=== PATIENT | female | born 1980 | race Caucasian/White ===

== ENCOUNTER 2018-04-14 17:40 | Emergency (ER) | payer OTHER, MEDICAID ==
[~2018-04-14] VITALS: Ht 157.5 cm; Wt 72.7 kg
[~2018-04-14 17:40] MED LIST: BUDEPRION XL300 MG PO; COMBIVENT INH14.7 GM IH; KLONOPIN 0.5MG0.5 MG PO; LEVOXYL0.05 MG PO; MELATONIN5 M1 SL; PROZAC 20MG20 MG PO; SEROQUEL50 MG PO; ZANTAC 150MG T150 MG PO; ZYRTEC 10MG10 MG PO
[2018-04-14 17:52] VITALS: BP 103/70; TEMP 98.1
[2018-04-14 18:23] LABS: BASO # 0.1 (0.0-0.2); BASO % 0.6 % (0.0-2.0); EOS # 0.8 (0.0-0.7); EOS % 10.5 % (0-4.0); GRAN # 4.9 (1.4-6.5); GRAN % 62.1 % (42.2-75.2); HEMATOCRIT 42.4 % (37.0-47.0); HEMOGLOBIN 14.3 g/dl (12.5-16.0); LYMPH # 1.6 (1.2-3.4); LYMPH % 20.8 % (20.0-51.0); MEAN CELL VOLUME 86 fl (80.0-100.0); MEAN CORPUSCULAR HEMOGLOBIN 29 pg (27.0-31.0); MEAN CORPUSCULAR HGB CONC 34 g/dl (33.0-37.0); MONO # 0.5 (0.1-0.6); MONO % 5.7 % (1.7-9.3); PLATELET COUNT 245 K/mm3 (130-400); RED BLOOD COUNT 4.93 M/mm3 (4.10-5.30); REDCELL DISTRIBUTION WIDTH-CV 12.8 % (11.5-14.5)
[2018-04-14 18:34] LABS: ACETAMINOPHEN < 10 ug/mL (10-30); ALANINE AMINOTRANSFERASE 24 U/L (9-52); ALBUMIN 4.2 gm/dL (3.5-5.0); ALCOHOL(ethanol),MEDICAL < 10 mg/dL; ALKALINE PHOSPHATASE 84 U/L (50-136); ANION GAP 11 mmol/L (7-16); AST,SGOT 22 U/L (15-37); BILIRUBIN,TOTAL 0.2 mg/dL (0.0-1.0); BLOOD UREA NITROGEN 10 mg/dL (7-17); CALCIUM 9.5 mg/dL (8.4-10.2); CARBON DIOXIDE 24 mmol/L (22-30); CHLORIDE 103 mmol/L (98-107); CREATININE, serum 0.84 mg/dL (0.52-1.25); GLUCOSE 105 mg/dL (74-106); POTASSIUM 3.9 mmol/L (3.4-5.0); SALICYLATE < 1.0 mg/dL; SODIUM 138 mmol/L (137-145); TOTAL PROTEIN 8.1 gm/dL (6.4-8.2)
[2018-04-14 19:22] LABS: COLLECTION METHOD CLEAN CATCH
[2018-04-14 19:28] LABS: MUCOUS Present /lpf; PH 5 (5-8); SQUAMOUS EPITHELIAL >50 /hpf; URINE APPEARANCE Turbid; URINE BACTERIA Rare /hpf; URINE BILIRUBIN Negative (NEGATIVE); URINE BLOOD Negative (NEGATIVE); URINE COLOR Amber; URINE GLUCOSE Negative (NEGATIVE); URINE KETONE Negative (NEGATIVE); URINE LEUKOCYTE ESTERASE Negative (NEGATIVE); URINE NITRATE Negative (NEGATIVE); URINE PROTEIN(semi-quant) 1+ (NEGATIVE)
[2018-04-14 19:37] LABS: TRICYCLIC ANTIDEPRESS URINE NEGATIVE
[2018-04-14 22:37] VITALS: PULSE 78
[2018-04-14] MEDS ORDERED: AMBIEN 10MG10 MG PO (22:40)
[2018-04-14] MEDS ORDERED: KLONOPIN WAFERS1 MG PO (22:40)
== END 2018-04-14 22:37 | disposition home or self-care (01) ==
LOC: COL.ER 17:40
PROVIDERS: Emergency Medicine
DX: F32.9 Major depressive disorder, single episode, unspecified (principal)

== ENCOUNTER 2019-09-06 19:37 | Emergency (ER) | payer BC, MEDICAID ==
[~2019-09-06] VITALS: Ht 157.5 cm; Wt 60.9 kg
[~2019-09-06 19:37] MED LIST changes: +AMBIEN 10MG10 MG PO; +KLONOPIN WAFERS1 MG PO
[2019-09-06 19:52] VITALS: TEMP 97.4
[2019-09-06 20:55] LABS: BASO % 0.5 % (0.0-2.0); EOS # 0.8 (0.0-0.7); EOS % 12.8 % (0-4.0); GRAN # 3.3 (1.4-6.5); GRAN % 50.8 % (42.2-75.2); HEMATOCRIT 38.3 % (37.0-47.0); HEMOGLOBIN 12.8 g/dl (12.5-16.0); LYMPH # 1.9 (1.2-3.4); LYMPH % 28.6 % (20.0-51.0); MEAN CELL VOLUME 93 fl (80.0-100.0); MEAN CORPUSCULAR HEMOGLOBIN 31 pg (27.0-31.0); MEAN CORPUSCULAR HGB CONC 33 g/dl (33.0-37.0); MEAN PLATELET VOLUME 10.2 fl (7.4-10.4); MONO # 0.5 (0.1-0.6); MONO % 7.1 % (1.7-9.3); PLATELET COUNT 219 K/mm3 (130-400); RED BLOOD COUNT 4.14 M/mm3 (4.10-5.30); REDCELL DISTRIBUTION WIDTH-CV 13.7 % (11.5-14.5)
[2019-09-06 21:13] LABS: ALANINE AMINOTRANSFERASE 11 U/L (9-52); ALBUMIN 4.2 gm/dL (3.5-5.0); ALKALINE PHOSPHATASE 61 U/L (50-136); ANION GAP 8 mmol/L (7-16); AST,SGOT 28 U/L (15-37); BILIRUBIN,TOTAL 0.4 mg/dL (0.0-1.0); BLOOD UREA NITROGEN 10 mg/dL (7-17); CALCIUM 9.2 mg/dL (8.4-10.2); CARBON DIOXIDE 23 mmol/L (22-30); CHLORIDE 109 mmol/L (98-107); CREATININE, serum 0.68 (0.52-1.25); GLUCOSE 92 mg/dL (74-106); POTASSIUM 3.4 mmol/L (3.4-5.0); SODIUM 140 mmol/L (137-145)
[2019-09-06 21:16] LABS: ACETAMINOPHEN < 10 ug/mL (10-30); ALCOHOL(ethanol),MEDICAL < 10 mg/dL; SALICYLATE < 1.0 mg/dL
[2019-09-06 21:46] LABS: COLLECTION METHOD CLEAN CATCH
[2019-09-06 21:51] LABS: MUCOUS Present /lpf; PH 6 (5-8); URINE APPEARANCE Clear; URINE BACTERIA Rare /hpf; URINE BILIRUBIN Negative (NEGATIVE); URINE BLOOD Negative (NEGATIVE); URINE COLOR Yellow; URINE GLUCOSE Negative (NEGATIVE); URINE KETONE Negative (NEGATIVE); URINE LEUKOCYTE ESTERASE Negative (NEGATIVE); URINE NITRATE Negative (NEGATIVE); URINE PROTEIN(semi-quant) Negative (NEGATIVE); URINE RBC 0-2 /hpf; URINE UROBILINOGEN Negative (NEGATIVE)
[2019-09-06 22:10] LABS: TRICYCLIC ANTIDEPRESS URINE NEGATIVE
[2019-09-06 22:23] VITALS: BP 115/82; PULSE 85
== END 2019-09-06 22:40 | disposition home or self-care (01) ==
LOC: COL.ER 19:37
PROVIDERS: Nurse Practitioner
DX: F32.9 Major depressive disorder, single episode, unspecified (principal); R45.851 Suicidal ideations; F41.9 Anxiety disorder, unspecified; J45.909 Unspecified asthma, uncomplicated

== ENCOUNTER → 2020-09-19 | Outpatient (CLI) | payer MEDICAID | LOC: MC.RAD 13:42 | DX: Z12.31 Encounter for screening mammogram for malignant neoplasm of breast (principal); Z80.3 Family history of malignant neoplasm of breast ==

== ENCOUNTER → 2021-10-30 | Outpatient (CLI) | payer MEDICAID | LOC: MC.RAD 14:00 | DX: Z12.31 Encounter for screening mammogram for malignant neoplasm of breast (principal) ==

== ENCOUNTER → 2023-07-17 | Outpatient (CLI) | payer MEDICAID | LOC: MHCPAIN 13:05 | DX: M54.50 Low back pain, unspecified (principal); M79.2 Neuralgia and neuritis, unspecified; M25.551 Pain in right hip; M25.552 Pain in left hip | CPT/HCPCS: G0463 ==

== ENCOUNTER 2023-10-24 13:30 | Outpatient (RCR) | payer MEDICAID | END 2023-10-26 | disposition home or self-care (01) | LOC: WSPT | DX: M25.551 Pain in right hip (principal); M25.552 Pain in left hip | CPT/HCPCS: G0283-GP ==

== ENCOUNTER 2024-05-20 13:00 | Outpatient (RCR) | payer MEDICAID | END 2024-05-26 | disposition home or self-care (01) | LOC: MKS.ESL.PT | DX: R29.898 Other symptoms and signs involving the musculoskeletal system (principal); R53.1 Weakness ==

== ENCOUNTER 2024-06-17 10:15 | Outpatient (RCR) | payer MEDICAID | END 2024-06-26 | disposition home or self-care (01) | LOC: MKS.ESL.PT | DX: R53.1 Weakness (principal); R29.898 Other symptoms and signs involving the musculoskeletal system; M54.50 Low back pain, unspecified ==